=== PATIENT | male | born 1985 | race Caucasian/White ===

== ENCOUNTER 2016-05-26 11:01 | Emergency (ER) | payer SELFPAY ==
[2016-05-26 11:19] VITALS: BP 133/79; BMI 25.0
--- NOTE | 2016-05-26 12:32 | DR.GENAD ---
HPI - PCP Primary Care Physician: - HPI Comment HPI Comment: Intermittent bilateral scrotal pain for several months which has worsened and become more persistent x past several weeks; no acute injury, swelling or redness; no penile drainage - Complaint/Symptoms Chief Complaint:: PAIN TO SCROTUM AREA WORSE TODAY - Source History Provided: Patient - Mode of Arrival Mode of Arrival: Ambulatory - Timing Onset of Chief Complaint: 05/26/16 PMH - PMH Past Medical History: Yes Past Medical History Comment: KIDNEY STONES Past Surgical History: No - Family History History of Family Medical Conditions: Yes Family Medical History: Cancer, [place], Coronary Artery Disease, Hypertension - Social History Alcohol Use: Occasionally Do you use any recreational Drugs:: Yes (THC) Lives With: Friend Lives Where: Home - infectious screening In the last 2 months have you had wt loss of >10#?: NO Have you had fever, night sweats or hemotysis?: No Have you traveled outside the country in the last 6 months?: No Isolation: Standard ROS - Review of Systems Constitutional: No Symptoms Reported Respiratoy: No Symptoms Reported Cardiovascular: No Symptoms Reported Gastrointestinal/Abdominal: No Symptoms Reported Genitourinary: See HPI Neurological: No Symptoms Reported Musculoskeletal: Back Pain (lower back; intermittently for several months; no acute injury or radiation) Integumentary: No Symptoms Reported Hematologic/Lymphatic: No Symptoms Reported PE - Vital Signs Vitals: Temperature 97.6 F Pulse Rate 100 Respiratory Rate 15 Blood Pressure 133/79 O2 Sat by Pulse Oximetry 60 - General Limitations: No Limitations General Appearance: Alert, In No Apparent Distress - Head Head Exam: Normal Inspection - Neck Neck Exam: Normal Inspection - Chest Chest Inspection: Normal Inspection - Respiratory Respiratory Exam: Normal Lung Sounds Bilat - Cardiovascular Cardiovascular Exam: Regular Rate, Normal Rhythm - Extremities Extremities Exam: Normal Inspection - Back Back Exam: Normal Inspection, Full ROM - Neurologic Neurological Exam: Alert, Oriented X3 - Psychiatric Psychiatric Exam: Normal Affect, Normal Mood - Other Exam Other Exam: no masses in either groin; tiny left tender epididymal mass left scrotum, no other masses noted ROR - Labs Reviewed Laboratory Results Reviewed?: Yes (ua/gc/chlamydia negative) Laboratory: Specimen Type Clean catch urine 05/26/16 12:30 Urine Color Yellow (YELLOW) 05/26/16 12:30 Urine Appearance Clear (CLEAR) 05/26/16 12:30 Urine pH 7.0 (5.0 - 8.0) 05/26/16 12:30 Ur Specific [place] 1.010 (1.000-1.030) 05/26/16 12:30 Urine Protein Negative (NEGATIVE) 05/26/16 12:30 Urine Glucose (UA) Negative (NEGATIVE) 05/26/16 12:30 Urine Ketones Negative (NEGATIVE) 05/26/16 12:30 Urine Occult Blood Negative (NEGATIVE) 05/26/16 12:30 Urine Nitrite Negative (NEGATIVE) 05/26/16 12:30 Urine Bilirubin Negative (NEGATIVE) 05/26/16 12:30 Urine Urobilinogen Normal (NORMAL) 05/26/16 12:30 Ur Leukocyte Esterase Negative (NEGATIVE) 05/26/16 12:30 Urine RBC None seen /HPF (NEGATIVE) 05/26/16 12:30 Urine WBC None seen /HPF (NEGATIVE) 05/26/16 12:30 Ur Squamous Epith Cells Rare /HPF (NEGATIVE) 05/26/16 12:30 Amorphous Sediment Trace /HPF (NEGATIVE) 05/26/16 12:30 Urine Bacteria Negative /HPF (NEGATIVE) 05/26/16 12:30 Ur Culture Indicated? No/not indicated 05/26/16 12:30 - XRAY XRAY Interpreted by: Radiologist (testicular us minimal fluid bilaterally; otherwise negative) - Diagnosis Discharge Problem: Testicular/scrotal pain Lumbar back pain Qualifiers: Chronicity: acute Back pain laterality: bilateral Sciatica presence: without sciatica Qualified Code(s): M54.5 - Low back pain - Discharge Plan Disposition: 01 HOME, SELF-CARE Condition: Stable Prescriptions: Ketorolac Tromethamine [Toradol Tab] 10 mg PO Q8H PRN #12 tab PRN Reason: Pain - Follow ups/Referrals Follow ups/Referrals: NFD,None [Primary Care Provider] - 3 days - Instructions Instructions: Back Pain, Adult, [id number] Additional Instructions: follow up with urology (Dr Benz) if symptoms continue
[2016-05-26 12:51] LABS: BILIRUBIN,URINE NEGATIVE (NEGATIVE); BLOOD/HEMOGLOBIN,URINE NEGATIVE (NEGATIVE); GLUCOSE, URINE NEGATIVE (NEGATIVE); KETONES,URINE NEGATIVE (NEGATIVE); LEUKOCYTE ESTERASE ,URINE NEGATIVE (NEGATIVE); NITRITES,URINE NEGATIVE (NEGATIVE); PROTEIN,URINE NEGATIVE (NEGATIVE); UROBILINOGEN,URINE NORMAL (NORMAL)
[2016-05-26 13:09] LABS: APPEARANCE,URINE CLEAR (CLEAR); COLOR,URINE YELLOW (YELLOW)
[2016-05-26 13:22] LABS: AMORPHOUS SEDIMENT,UR TRACE /HPF (NEGATIVE); BACTERIA,URINE NEGATIVE /HPF (NEGATIVE); RBC,URINE NONE SEEN /HPF (NEGATIVE); SQUAMOUS EPITHELIAL CELL,UR RARE /HPF (NEGATIVE)
--- NOTE | 2016-05-26 13:52 | US ---
Indication: Scrotal pain and questionable left scrotal mass. Exam: Scrotal ultrasound . Technique: Transverse and longitudinal grayscale and color Doppler images were obtained of the scrot um . Findings: The right testicle measures 4 x 2.2 x 4 cm. The left testicle measures 4.7 x 3.7 x 1.8 cm. Both testicles are normal size and echogenicity with normal color flow and Doppler signal and no ma ss seen. The epididymis measures 10 mm on the right and 7 mm on the left and are normal in echogenic ity. There are small fluid collections around both testicles. No peritesticular mass is seen. Impression: Normal testicles with no intratesticular abnormality seen. Unremarkable epididymis bilaterally. Small hydroceles bilaterally. Reported By:
[2016-05-26 14:49] LABS: CHLAMYDIA TRACH URINE NOT DETECTED (NOT DETECT)
== END 2016-05-26 14:11 | disposition home or self-care (01) ==
LOC: ER 11:01
DX: N50.82 Scrotal pain (principal); M54.5 Low back pain; N43.3 Hydrocele, unspecified
CPT/HCPCS: 76870; 81001; 87491; 87591; 99283

== ENCOUNTER 2020-05-26 07:44 | Inpatient (IN) ==
[2020-05-26 07:57] VITALS: BMI 22.7
[2020-05-26] MEDS ORDERED: MORPHINE SULFATE INJ 4 MG IVP ONE (08:40)
[2020-05-26] MEDS ORDERED: CLEOCIN 600 MG IV PREMIX 600 MG/50 ML BAG IV ONE ×2 (08:40→08:49)
[2020-05-26] MEDS ORDERED: MORPHINE SULFATE INJ 4 MG ONE (08:48)
--- NOTE | 2020-05-26 09:06 | DR.BITE ---
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 wrist/forearm swelling & pain. He was seen here 2 days ago for same complains and he was sent home with rx. for Bactrim DS. He thinks that he was bitten/stung by an insect while working in a yard about 10 days ago. He now has red streaks running up his forearm, there is no active wound drainage and he denies fever. Complaint/Symptoms Chief Complaint:: PT C/O HAVING A BITE TO HIS LEFT HAND AND THAT HE CAME TO ER ON SUNDAY NIGHT AND WAS GIVEN ABX PT C/O > PAIN AND SWELLING AND REDNESS ,BR Self Treatment fo Chief Complaint: LARGE AMOUNT OF SWELLING NOTED TO PTS LEFT HAND ,BR COVID-19 Coronavirus risk:travel/contact w/high risk person: No Has patient experienced Coronavirus symptoms: No Source History Provided: Patient Mode of Arrival Mode of Arrival: Ambulatory Duration Duration: Constant How lon Duration: Days Location Location: Arm (Lt. forearm) Timing Onset of Chief Complaint: 05/22/20 Context Caused by: Insect Symptoms: Swelling Severity Pain: None Puritis Severity: None SOB Severity: None Associated signs and symptoms Associated signs and symptoms: Swelling PMH PMH Past Medical History: No Past Surgical History: No Family History History of Family Medical Conditions: No Family Medical History: Diabetes Mellitus Social History Does patient currently use any type of tobacco product: Yes Have you used tobacco products in the last 12 months: Yes Type of Tobacco Use: Cigarettes Does any household member use tobacco: No Alcohol Use: None Do you use any recreational Drugs:: Yes (THC) Lives With: Family Lives Where: Home Travel Risk Coronavirus risk:travel/contact w/high risk person: No Has patient experienced Coronavirus symptoms: No Infectious screening In the last 2 months have you had wt loss of >10#?: NO Have you had fever, night sweats or hemotysis?: No Have you traveled outside the country in the last 6 months?: No Isolation: Standard ROS Review of Systems Constitutional: No Symptoms Reported Eyes: No Symptoms Reported ENTM: No Symptoms Reported Respiratoy: No Symptoms Reported Cardiovascular: No Symptoms Reported Gastrointestinal/Abdominal: No Symptoms Reported Genitourinary: No Symptoms Reported Neurological: No Symptoms Reported Musculoskeletal: Wrist (swollen, erythematous Lt. forearm) Integumentary: No Symptoms Reported Hematologic/Lymphatic: No Symptoms Reported Endocrine: No Symptoms Reported Psychiatric: No Symptoms Reported PE Vital Signs Vital Signs: Temp Pulse Resp BP BP Pulse Ox 05/26/20 09:04 18 05/26/20 07:53 98.3 F 95 H 20 136/69 100 05/25/20 02:11 156/87 Constitutional Limitations: No Limitations General Appearance: Alert Head Head Exam: Normal Inspection Eyes Eye exam: Normal Appearance and EOMI ENT ENT Exam: Normal Exam, Normal Oropharynx, Normal External Ear Exam and Mucous Membranes Moist Neck Neck Exam: Normal Inspection, Full ROM and Trachea Midline Chest Chest Inspection: Normal Inspection and Symmetric Chest Wall Rise Respiratory Respiratory Exam: Normal Lung Sounds Bilat Cardiovascular Cardiovascular Exam: Regular Rate, Normal Rhythm, Normal Heart Sounds, +S1 and +S2 Abdominal Exam Abdominal Exam: Normal Inspection, Normal Bowel Sounds and Soft Extremities Extremities Exam: Other (A large, non-ruptured papule on his Lt. wrist/distal forearm. It is firm and with light erythema. It is also tender to palpation. ) Back Back Exam: Normal Inspection Neurologic Neurological Exam: Alert and Oriented X3 Skin Skin Exam: Erythema (papule on Lt. wrist/distal ) MDM Differential Diagnosis Differential Diagnosis: Cellulitis COURSE Reevaluation 1st: Improved Education/Counseling Education/Counseling: Patient, Education and Counseling Educated On: Treatment, Diagnosis, Prognosis and Needs for Follow Up ROR Labs Reviewed Laboratory Results Reviewed?: Yes Result Diagrams: 05/26/20 09:00 Laboratory: WBC 20.7 X10^3/uL (3.6-10.0) H 05/26/20 09:00 RBC 4.84 X10^6/uL (4.7-6.0) 05/26/20 09:00 Hgb 14.5 g/dL (13.5-18.0) 05/26/20 09:00 Hct 43.7 % (42.0-54.0) 05/26/20 09:00 MCV 90.1 fL (80.0-100.0) 05/26/20 09:00 MCH 29.9 pg (27.0-34.0) 05/26/20 09:00 MCHC 33.2 g/dL (33.0-35.0) 05/26/20 09:00 RDW 12.6 % (11.6-16.5) 05/26/20 09:00 Plt Count 315 X10^3/uL (150.0-450.0) 05/26/20 09:00 MPV 9.0 fL (7.4-11.0) 05/26/20 09:00 Neut % (Auto) 86.0 % (42.0-75.0) H 05/26/20 09:00 Lymph % (Auto) 5.5 % (21.0-51.0) L 05/26/20 09:00 [place] % (Auto) 7.7 % (0.0-13.0) 05/26/20 09:00 Eos % (Auto) 0.5 % (0.9-2.9) L 05/26/20 09:00 Baso % (Auto) 0.3 % (0.2-1.0) 05/26/20 09:00 Neut # (Auto) 17.8 x10^3/uL (2.2-4.8) H 05/26/20 09:00 Lymph # (Auto) 1.1 X10^3/uL (1.3-2.9) L 05/26/20 09:00 [place] # (Auto) 1.6 x10^3/uL (0.3-0.8) H 05/26/20 09:00 Eos # (Auto) 0.1 x10^3/uL (0.0-0.2) 05/26/20 09:00 Baso # (Auto) 0.1 X10^3/uL (0.0-0.1) 05/26/20 09:00 Absolute Nucleated RBC 0.0 /100WBC 05/26/20 09:00 Opioid Opioid Risk Tool Age (Dax box if 16-45): Yes History of Preadolescent Sexual Abuse: No Total: 1 Total Score Risk Category: Low Risk Copyright: Gilberto CARVALHO predicting aberrant behaviors Diagnosis Discharge Problem: Cellulitis and abscess of hand
[2020-05-26 09:22] LABS: BASOPHILS # (AUTO) 0.1 X10^3/uL (0.0-0.1); BASOPHILS % (AUTO) 0.3 % (0.2-1.0); EOSINOPHILS # (AUTO) 0.1 x10^3/uL (0.0-0.2); EOSINOPHILS % (AUTO) 0.5 % (0.9-2.9); HEMATOCRIT 43.7 % (42.0-54.0); HEMOGLOBIN 14.5 g/dL (13.5-18.0); LYMPHOCYTES # (AUTO) 1.1 X10^3/uL (1.3-2.9); LYMPHOCYTES % (AUTO) 5.5 % (21.0-51.0); MEAN CORPUSCULAR HEMOGLOBIN 29.9 pg (27.0-34.0); MEAN CORPUSCULAR HGB CONC 33.2 g/dL (33.0-35.0); MEAN CORPUSCULAR VOLUME 90.1 fL (80.0-100.0); MONOCYTES # (AUTO) 1.6 x10^3/uL (0.3-0.8); MONOCYTES % (AUTO) 7.7 % (0.0-13.0); NEUTROPHILS # (AUTO) 17.8 x10^3/uL (2.2-4.8); PLATELET COUNT 315 X10^3/uL (150.0-450.0); RED BLOOD COUNT 4.84 X10^6/uL (4.7-6.0); RED CELL DISTRIBUTION WIDTH 12.6 % (11.6-16.5); WHITE BLOOD COUNT 20.7 X10^3/uL (3.6-10.0)
[2020-05-26] MEDS ORDERED: VANCOMYCIN IV *PREMIX 1 G/200 ML BAG 1 G/200 ML PIGGYBACK IV ONE ×2 (11:06→11:23)
[2020-05-26] MEDS ORDERED: VANCOMYCIN IV *PREMIX 1 G/200 ML BAG 1 G/200 ML PIGGYBACK IV SCH ×2 (11:10→13:00)
[2020-05-26] MEDS ORDERED: NS 1000 ML 1,000 ML ONE (11:22)
[2020-05-26] MEDS ORDERED: DILAUDID INJ ONE (11:22)
[2020-05-26] MEDS ORDERED: DILAUDID INJ IVP ONE (11:24)
[2020-05-26] MEDS: NS 1000 ML 1,000 ML IV SCH ×2 (11:28→20:33)
[2020-05-26] MEDS ORDERED: KETALAR ONE (11:45)
[2020-05-26] MEDS ORDERED: VERSED ONE (11:45)
[2020-05-26] MEDS ORDERED: DIPRIVAN VIAL 20 ML ONE (11:51)
[2020-05-26] MEDS ORDERED: XYLOCAINE 1 % (PLAIN) ONE (11:51)
[2020-05-26] MEDS ORDERED: PHARMACY CONSULT - VANCOMYCIN XX SCH (12:00)
--- NOTE | 2020-05-26 12:16 | OR.IMMED ---
Immediate Post-Op Note - Immediate Post-Op Note Pre-Op Diagnosis: Lt forearm abscess. Post-Op Diagnosis: multiple abscesses Lt forearm .. cellulitis and lymphangitis Lt forearm . Procedure: I&D Lt forearm abscess Surgeon/Cdl B Driver: Cate Specimens Removed: C&S Condition: Stable (to keep the hand elevated on IV pole)
[2020-05-26] MEDS: CLEOCIN 300 MG IV PREMIX 300 MG/50 ML BAG IV SCH ×2 (14:25→22:24)
[2020-05-26] MEDS: VANCOMYCIN IV *PREMIX 1 G/200 ML BAG 1 G/200 ML PIGGYBACK IV SCH (20:34)
[2020-05-27 04:40] LABS: BASOPHILS # (AUTO) 0.1 X10^3/uL (0.0-0.1); BASOPHILS % (AUTO) 0.6 % (0.2-1.0); EOSINOPHILS # (AUTO) 0.4 x10^3/uL (0.0-0.2); EOSINOPHILS % (AUTO) 2.6 % (0.9-2.9); HEMATOCRIT 39.6 % (42.0-54.0); HEMOGLOBIN 12.8 g/dL (13.5-18.0); LYMPHOCYTES # (AUTO) 2.2 X10^3/uL (1.3-2.9); LYMPHOCYTES % (AUTO) 15.7 % (21.0-51.0); MEAN CORPUSCULAR HEMOGLOBIN 29.3 pg (27.0-34.0); MEAN CORPUSCULAR HGB CONC 32.4 g/dL (33.0-35.0); MEAN CORPUSCULAR VOLUME 90.6 fL (80.0-100.0); MEAN PLATELET VOLUME 9.6 fL (7.4-11.0); MONOCYTES # (AUTO) 1.2 x10^3/uL (0.3-0.8); MONOCYTES % (AUTO) 8.8 % (0.0-13.0); NEUTROPHILS # (AUTO) 10.1 x10^3/uL (2.2-4.8); NEUTROPHILS % (AUTO) 72.3 % (42.0-75.0); PLATELET COUNT 278 X10^3/uL (150.0-450.0); RED BLOOD COUNT 4.37 X10^6/uL (4.7-6.0); RED CELL DISTRIBUTION WIDTH 12.9 % (11.6-16.5)
[2020-05-27 04:50] LABS: ALANINE AMINOTRANSFERASE 20 Units/L (12-78); ALBUMIN 2.7 g/dL (3.4-5.0); ALKALINE PHOSPHATASE 82 Units/L (46-116); ASPARTATE AMINO TRANSFERASE 12 Units/L (15-37); BLOOD UREA NITROGEN 12 mg/dL (7-18); CALCIUM 8.5 mg/dL (8.5-10.1); CARBON DIOXIDE 26.7 mmol/L (21-32); CHLORIDE 104 mmol/L (98-107); COR CA(FOR HYPOALB) 9.5 mg/dL (8.5-10.1); COR NA(FOR HYPERGLY) 139 mmol/L (136-145); CREATININE 0.96 mg/dL (0.70-1.30); SODIUM 138 mmol/L (136-145); TOTAL PROTEIN 6.4 g/dL (6.4-8.2); eGFR NON BLACK RACES > 60 (>60)
[2020-05-27] MEDS: NS 1000 ML 1,000 ML IV SCH ×4 (05:24→20:49)
[2020-05-27] MEDS: CLEOCIN 300 MG IV PREMIX 300 MG/50 ML BAG IV SCH ×3 (05:48→22:17)
[2020-05-27] MEDS: NICOTINE PATCH TD SCH (08:35)
[2020-05-27] MEDS: VANCOMYCIN IV *PREMIX 1 G/200 ML BAG 1 G/200 ML PIGGYBACK IV SCH ×2 (08:36→20:35)
--- NOTE | 2020-05-27 12:42 | DR.PROGNOT ---
Hospital Progress Notes - Progress Note for Day of: Progress Note Date: 05/27/20 - Chief Complaint Chief Complaint: feeling better today with less pain and less swelling of Lt hand . coag + staph. WBC 14. BS 155. - Past Medical Family Social History Past Med/Fam/Surg Hx: No changes since H&P Allergies: Allergies No Known Drug Allergies Allergy (Verified 05/26/20 07:53) - Review Of Systems ROS: No change since H&P - Vital Signs Vital Signs: Temperature 98.3 F Pulse Rate [Right Brachial] 53 Pulse Rate [Left Brachial] 83 Pulse Rate 68 Respiratory Rate 18 Blood Pressure [Right Arm] 126/56 Blood Pressure [Left Arm] 133/72 Blood Pressure 120/62 O2 Sat by Pulse Oximetry 96 - Physical Exam Oriented: Normal Eyes: Normal Ear: Normal Nose: Normal Throat: Normal Respiratory: Normal Cardiovascular: Normal : Normal GI:Auscultation: Normal GI:Palpation: Normal GI: Tenderness: Normal Skin: Wound (Lt hand is still with edema on the dorsal aspect . no erythema now .. has streaks of lymphangitis extending ti the elbow ) Speech Pattern: Clear, Appropriate - Laboratory and Diagnostics Result Diagrams: 05/27/20 04:05 05/27/20 04:05 Labs: 05/26/20 10:48 Hand - Left Gram Stain - Final 05/26/20 10:48 Hand - Left Wound Culture - Preliminary Laboratory WBC 14.0 X10^3/uL (3.6-10.0) H 05/27/20 04:05 RBC 4.37 X10^6/uL (4.7-6.0) L 05/27/20 04:05 Hgb 12.8 g/dL (13.5-18.0) L 05/27/20 04:05 Hct 39.6 % (42.0-54.0) L 05/27/20 04:05 MCV 90.6 fL (80.0-100.0) 05/27/20 04:05 MCH 29.3 pg (27.0-34.0) 05/27/20 04:05 MCHC 32.4 g/dL (33.0-35.0) L 05/27/20 04:05 RDW 12.9 % (11.6-16.5) 05/27/20 04:05 Plt Count 278 X10^3/uL (150.0-450.0) 05/27/20 04:05 MPV 9.6 fL (7.4-11.0) 05/27/20 04:05 Neut % (Auto) 72.3 % (42.0-75.0) 05/27/20 04:05 Lymph % (Auto) 15.7 % (21.0-51.0) L 05/27/20 04:05 [place] % (Auto) 8.8 % (0.0-13.0) 05/27/20 04:05 Eos % (Auto) 2.6 % (0.9-2.9) 05/27/20 04:05 Baso % (Auto) 0.6 % (0.2-1.0) 05/27/20 04:05 Neut # (Auto) 10.1 x10^3/uL (2.2-4.8) H 05/27/20 04:05 Lymph # (Auto) 2.2 X10^3/uL (1.3-2.9) 05/27/20 04:05 [place] # (Auto) 1.2 x10^3/uL (0.3-0.8) H 05/27/20 04:05 Eos # (Auto) 0.4 x10^3/uL (0.0-0.2) H 05/27/20 04:05 Baso # (Auto) 0.1 X10^3/uL (0.0-0.1) 05/27/20 04:05 Absolute Nucleated RBC 0.0 /100WBC 05/27/20 04:05 Sodium 138 mmol/L (136-145) 05/27/20 04:05 Corrected Sodium 139 mmol/L (136-145) 05/27/20 04:05 Potassium 3.9 mmol/L (3.5-5.1) 05/27/20 04:05 Chloride 104 mmol/L (98-107) 05/27/20 04:05 Carbon Dioxide 26.7 mmol/L (21-32) 05/27/20 04:05 BUN 12 mg/dL (7-18) 05/27/20 04:05 Creatinine 0.96 mg/dL (0.70-1.30) 05/27/20 04:05 Est GFR (MDRD) Af Amer > 60 (>60) 05/27/20 04:05 Est GFR (MDRD) Non-Af > 60 (>60) 05/27/20 04:05 Glucose 155 mg/dL (65-99) H 05/27/20 04:05 Calcium 8.5 mg/dL (8.5-10.1) 05/27/20 04:05 Corrected Calcium 9.5 mg/dL (8.5-10.1) 05/27/20 04:05 Total Bilirubin 0.20 mg/dL (0.2-1.0) 05/27/20 04:05 AST 12 Units/L (15-37) L 05/27/20 04:05 ALT 20 Units/L (12-78) 05/27/20 04:05 Alkaline Phosphatase 82 Units/L (46-116) 05/27/20 04:05 Total Protein 6.4 g/dL (6.4-8.2) 05/27/20 04:05 Albumin 2.7 g/dL (3.4-5.0) L 05/27/20 04:05 Globulin 3.7 g/dL (2.5-4.5) 05/27/20 04:05 Albumin/Globulin Ratio 0.7 Ratio (1.1-2.1) L 05/27/20 04:05 SARS CoV-2 RNA Rapid SCARLETT Negative (NEGATIVE) 05/26/20 10:56 - Assessment and Plan 1: foremarm abscesses with cellulitis and lymphangitis ( s/p I&D ) .Coag + staph. same IV ATB and hand elevation . awaiting C&S - Problem Patient Problems: Patient Problems Cellulitis and abscess of hand (Acute) L03.119, L02.519
[2020-05-27] MEDS: PERCOCET TAB 5/325 MG PO PRN (17:30)
[2020-05-27 20:13] LABS: CREATININE 1.04 mg/dL (0.70-1.30); VANCOMYCIN,TROUGH 4.3 ug/mL (15-20)
[2020-05-27] MEDS ORDERED: PHARMACY COMMENT IV NR (20:30)
[2020-05-28] MEDS: NS 1000 ML 1,000 ML IV SCH ×5 (05:09→19:39)
[2020-05-28] MEDS: CLEOCIN 300 MG IV PREMIX 300 MG/50 ML BAG IV SCH ×3 (05:10→21:48)
[2020-05-28] MEDS: PERCOCET TAB 5/325 MG PO PRN ×2 (07:56→19:09)
[2020-05-28] MEDS ORDERED: STERILE WATER IRRIGATION IR ONE ×3 (08:05→20:08)
[2020-05-28] MEDS ORDERED: HYDROGEN PEROXIDE 3% ONE (08:11)
[2020-05-28 08:46] LABS: BASOPHILS # (AUTO) 0.1 X10^3/uL (0.0-0.1); EOSINOPHILS # (AUTO) 0.5 x10^3/uL (0.0-0.2); EOSINOPHILS % (AUTO) 6.8 % (0.9-2.9); HEMATOCRIT 41.6 % (42.0-54.0); LYMPHOCYTES # (AUTO) 1.9 X10^3/uL (1.3-2.9); LYMPHOCYTES % (AUTO) 27.4 % (21.0-51.0); MEAN CORPUSCULAR HEMOGLOBIN 30.2 pg (27.0-34.0); MEAN CORPUSCULAR HGB CONC 33.7 g/dL (33.0-35.0); MEAN CORPUSCULAR VOLUME 89.5 fL (80.0-100.0); MEAN PLATELET VOLUME 8.8 fL (7.4-11.0); MONOCYTES # (AUTO) 0.6 x10^3/uL (0.3-0.8); MONOCYTES % (AUTO) 8.6 % (0.0-13.0); NEUTROPHILS # (AUTO) 3.9 x10^3/uL (2.2-4.8); NEUTROPHILS % (AUTO) 56.2 % (42.0-75.0); PLATELET COUNT 331 X10^3/uL (150.0-450.0); RED BLOOD COUNT 4.65 X10^6/uL (4.7-6.0); RED CELL DISTRIBUTION WIDTH 12.7 % (11.6-16.5)
[2020-05-28] MEDS: NICOTINE PATCH TD SCH (08:47)
[2020-05-28] MEDS: VANCOMYCIN IV *PREMIX 1 G/200 ML BAG 1 G/200 ML PIGGYBACK IV SCH ×3 (08:47→22:51)
[2020-05-28] MEDS: HYDROGEN PEROXIDE 3% EXT SCH ×2 (08:48→20:25)
[2020-05-28 08:57] LABS: ALANINE AMINOTRANSFERASE 39 Units/L (12-78); ALBUMIN 2.8 g/dL (3.4-5.0); ALKALINE PHOSPHATASE 86 Units/L (46-116); ASPARTATE AMINO TRANSFERASE 26 Units/L (15-37); BLOOD UREA NITROGEN 12 mg/dL (7-18); CALCIUM 8.9 mg/dL (8.5-10.1); CARBON DIOXIDE 29.3 mmol/L (21-32); CHLORIDE 105 mmol/L (98-107); COR CA(FOR HYPOALB) 9.9 mg/dL (8.5-10.1); COR NA(FOR HYPERGLY) 141 mmol/L (136-145); CREATININE 0.92 mg/dL (0.70-1.30); SODIUM 141 mmol/L (136-145); TOTAL PROTEIN 6.9 g/dL (6.4-8.2); eGFR NON BLACK RACES > 60 (>60)
[2020-05-29] MEDS: NS 1000 ML 1,000 ML IV SCH (03:29)
[2020-05-29] MEDS: CLEOCIN 300 MG IV PREMIX 300 MG/50 ML BAG IV SCH (05:01)
[2020-05-29] MEDS ORDERED: PHARMACY COMMENT IV NR (05:30)
[2020-05-29 06:50] LABS: CREATININE 0.87 mg/dL (0.70-1.30); VANCOMYCIN,TROUGH 11.8 ug/mL (15-20)
[2020-05-29] MEDS: VANCOMYCIN IV *PREMIX 1 G/200 ML BAG 1 G/200 ML PIGGYBACK IV SCH (07:00)
[2020-05-29] MEDS ORDERED: STERILE WATER IRRIGATION IR ONE (08:41)
[2020-05-29 12:10] VITALS: BP 106/70
--- NOTE | 2020-05-29 12:13 | PCM.PROG ---
Progress Note Past Medical Family Social History Allergies: Allergies No Known Drug Allergies Allergy (Verified 05/26/20 07:53) Review of Systems ROS: No change since H&P Vital Signs and I&O's Vital Signs: Temperature 98.1 F Pulse Rate [Right Brachial] 72 Pulse Rate [Left Brachial] 83 Pulse Rate 68 Respiratory Rate 18 Blood Pressure [Right Arm] 106/70 Blood Pressure [Left Arm] 133/72 Blood Pressure 120/62 O2 Sat by Pulse Oximetry 99 Intake and Output: Intake & Output 05/26/20 05/27/20 05/28/20 05/29/20 23:59 23:59 23:59 23:59 Intake Total 1718 / 1718 5810 / 5810 4518 / 4518 1164 / 1164 Balance 1718 / 1718 5810 / 5810 4518 / 4518 1164 / 1164 Physical Exam Oriented: Normal Eyes: Normal Ear: Normal Nose: Normal Throat: Normal Respiratory: Normal Cardiovascular: Normal : Normal Auscultation: Bowel Sounds: Normal Tenderness: Normal Skin: Wound (Lt hand hand wound volar aspect is with 2 open wounds less that 1 cm each with purulent drainage . Lymphangitis of the left forearm is resolved ) Speech Pattern: Clear and Appropriate Laboratory and Diagnostics Result Diagrams: 05/28/20 08:26 05/29/20 06:14 Labs: 05/26/20 10:48 Hand - Left Wound Gram Stain - Final 05/26/20 10:48 Hand - Left Wound Culture - Final Staphylococcus Aureus 05/26/20 09:00 Blood Blood Culture - Preliminary 05/26/20 08:58 Blood Blood Culture - Preliminary Laboratory WBC 7.0 X10^3/uL (3.6-10.0) 05/28/20 08:26 RBC 4.65 X10^6/uL (4.7-6.0) L 05/28/20 08:26 Hgb 14.0 g/dL (13.5-18.0) 05/28/20 08:26 Hct 41.6 % (42.0-54.0) L 05/28/20 08:26 MCV 89.5 fL (80.0-100.0) 05/28/20 08:26 MCH 30.2 pg (27.0-34.0) 05/28/20 08:26 MCHC 33.7 g/dL (33.0-35.0) 05/28/20 08: RDW 12.7 % (11.6-16.5) 05/28/20 08:26 Plt Count 331 X10^3/uL (150.0-450.0) 05/28/20 08:26 MPV 8.8 fL (7.4-11.0) 05/28/20 08:26 Neut % (Auto) 56.2 % (42.0-75.0) 05/28/20 08:26 Lymph % (Auto) 27.4 % (21.0-51.0) 05/28/20 08:26 [place] % (Auto) 8.6 % (0.0-13.0) 05/28/20 08:26 Eos % (Auto) 6.8 % (0.9-2.9) H 05/28/20 08:26 Baso % (Auto) 1.0 % (0.2-1.0) 05/28/20 08:26 Neut # (Auto) 3.9 x10^3/uL (2.2-4.8) 05/28/20 08:26 Lymph # (Auto) 1.9 X10^3/uL (1.3-2.9) 05/28/20 08:26 [place] # (Auto) 0.6 x10^3/uL (0.3-0.8) 05/28/20 08:26 Eos # (Auto) 0.5 x10^3/uL (0.0-0.2) H 05/28/20 08:26 Baso # (Auto) 0.1 X10^3/uL (0.0-0.1) 05/28/20 08:26 Absolute Nucleated RBC 0.1 /100WBC 05/28/20 08:26 Sodium 141 mmol/L (136-145) 05/28/20 08:26 Corrected Sodium 141 mmol/L (136-145) 05/28/20 08:26 Potassium 4.1 mmol/L (3.5-5.1) 05/28/20 08:26 Chloride 105 mmol/L (98-107) 05/28/20 08:26 Carbon Dioxide 29.3 mmol/L (21-32) 05/28/20 08:26 BUN 12 mg/dL (7-18) 05/28/20 08:26 Creatinine 0.87 mg/dL (0.70-1.30) 05/29/20 06:14 Est GFR (MDRD) Af Amer > 60 (>60) 05/28/20 08:26 Est GFR (MDRD) Non-Af > 60 (>60) 05/28/20 08:26 Glucose 115 mg/dL (65-99) H 05/28/20 08:26 Calcium 8.9 mg/dL (8.5-10.1) 05/28/20 08:26 Corrected Calcium 9.9 mg/dL (8.5-10.1) 05/28/20 08:26 Total Bilirubin 0.10 mg/dL (0.2-1.0) L 05/28/20 08:26 AST 26 Units/L (15-37) 05/28/20 08:26 ALT 39 Units/L (12-78) 05/28/20 08:26 Alkaline Phosphatase 86 Units/L (46-116) 05/28/20 08:26 Total Protein 6.9 g/dL (6.4-8.2) 05/28/20 08:26 Albumin 2.8 g/dL (3.4-5.0) L 05/28/20 08:26 Globulin 4.1 g/dL (2.5-4.5) 05/28/20 08:26 Albumin/Globulin Ratio 0.7 Ratio (1.1-2.1) L 05/28/20 08:26 Vancomycin Trough 11.8 ug/mL (15-20) L 05/29/20 06:14 SARS CoV-2 RNA Rapid SCARLETT Negative (NEGATIVE) 05/26/20 10:56 Plan (1) Cellulitis and abscess of hand: Status: Acute Plan: Cultures show MSSA sensitive to Augmentin . Markedly improved .Agree with Dr. Salcedo that he can discharged home on po antibiotics and his girlfriend will be instructed on wound care . F/U Dr. Jackson 1 week.
== END 2020-05-29 12:58 | disposition home or self-care (01) | DRG 581 ==
LOC: ER 07:52 → MED/SURG 11:07
PROVIDERS: ADMIT Obstetrics & Gynecology Obstetrics; ATTEND Obstetrics & Gynecology Obstetrics
DX: R60.0 Localized edema; L03.114 Cellulitis of left upper limb; Z20.822 Contact with and (suspected) exposure to COVID-19; Z72.0 Tobacco use; L02.414 Cutaneous abscess of left upper limb; B95.61 Methicillin susceptible Staphylococcus aureus infection as the cause of diseases classified elsewhere